=== PATIENT | male | born 1945 | race Caucasian/White ===

== ENCOUNTER → 2020-02-22 16:21 | Outpatient (CLI) | payer MEDICARE, OTHER, SELFPAY ==
[2020-02-23 07:57] LABS: COVID19 Sendout Not Detected (Not Detect)
== END ==
PROVIDERS: Visit Provider Physician Assistant
DX: Z03.818 Encounter for observation for suspected exposure to other biological agents ruled out (principal)
CPT/HCPCS: 87635